=== PATIENT | female | born 1950 | race Two or more races ===

== ENCOUNTER 2022-05-05 09:05 | Outpatient (CLI) | payer OTHER | END 2022-05-05 09:13 | disposition home or self-care (01) | LOC: SONOGRAMA 09:05 | PROVIDERS: ATTEND Internal Medicine | DX: E04.2 Nontoxic multinodular goiter (principal); R22.1 Localized swelling, mass and lump, neck ==

== ENCOUNTER 2022-06-09 07:29 | Outpatient (CLI) | payer OTHER | END 2022-06-09 07:36 | disposition home or self-care (01) | LOC: TOM 07:29 | PROVIDERS: ATTEND Otolaryngology Otology & Neurotology | DX: D37.030 Neoplasm of uncertain behavior of the parotid salivary glands (principal) | CPT/HCPCS: 70491; Q9965 ==

== ENCOUNTER 2022-07-08 08:09 | Outpatient (CLI) | payer OTHER | END 2022-07-08 08:11 | disposition home or self-care (01) | LOC: SONOGRAMA 08:09 | PROVIDERS: ATTEND Pathology Anatomic Pathology & Clinical Pathology | DX: D37.030 Neoplasm of uncertain behavior of the parotid salivary glands (principal); D11.0 Benign neoplasm of parotid gland ==

== ENCOUNTER 2023-05-03 09:54 | Outpatient (CLI) | payer OTHER | END 2023-05-03 10:03 | disposition home or self-care (01) | LOC: TOM 09:54 | PROVIDERS: ATTEND Internal Medicine Pulmonary Disease | DX: G47.33 Obstructive sleep apnea (adult) (pediatric) (principal); Z87.891 Personal history of nicotine dependence; E66.01 Morbid (severe) obesity due to excess calories; R05.3 Chronic cough; D11.0 Benign neoplasm of parotid gland | CPT/HCPCS: 70491; 71250; Q9965 ==

== ENCOUNTER 2023-06-08 09:39 | Outpatient (CLI) | payer OTHER | END 2023-06-08 09:49 | disposition home or self-care (01) | LOC: MAMO-SONO 09:39 | PROVIDERS: ATTEND Surgery | DX: N60.11 Diffuse cystic mastopathy of right breast (principal); N60.12 Diffuse cystic mastopathy of left breast ==

== ENCOUNTER 2023-07-27 07:22 | Outpatient (CLI) | payer OTHER | END 2023-07-27 07:25 | disposition home or self-care (01) | LOC: NUCLEAR 07:22 | PROVIDERS: ATTEND Internal Medicine Pulmonary Disease | DX: G47.33 Obstructive sleep apnea (adult) (pediatric) (principal); R91.1 Solitary pulmonary nodule; Z87.891 Personal history of nicotine dependence; E66.01 Morbid (severe) obesity due to excess calories; R05.3 Chronic cough | CPT/HCPCS: 78816; A9552 ==

== ENCOUNTER 2023-08-01 07:40 | Day surgery (SDC) | payer OTHER ==
[2023-07-26 10:32] LABS: HEMATOCRIT 36.5 % (36.0-45.00); HEMOGLOBIN 12.3 g/dL (12.0-15.00); MEAN CELL VOLUME 79.5 fL (80.00-100.00); MEAN CORPUSCULAR HEMOGLOBIN 26.9 pg (27.00-32.0); MEAN CORPUSCULAR HGB CONC 33.8 g/dl (32.0-36.0); PLATELET COUNT 218 K/uL (150-450); RED BLOOD COUNT 4.59 M/uL (4.00-6.00); RED CELL DISTRIBUTION WIDTH 16.5 % (11.5-14.5)
[2023-07-26 10:33] LABS: PH,URINE 6.5 (5.0-8.0); URINE APPEARANCE Clear; URINE BILIRRUBIN Negative (NEGATIVE); URINE BLOOD Negative; URINE COLOR Yellow; URINE GLUCOSE Negative (NEGATIVE); URINE LEUKOCYTE Trace; URINE NITRATE Negative; URINE PROTEIN Negative (NEGATIVE); URINE UROBILINOGEN 0.2 E.U./dl
[2023-07-26 10:38] LABS: URINE BACTERIA 17.6 uL (0.0-1933); URINE EPITHELIAL CELLS 5.2 uL (0.0-38.8); URINE WBC 5.4 uL (0.0-23.2)
[2023-07-26 10:52] LABS: URINE RBC 1.8 uL (0.0-20.8)
[2023-07-26 11:03] LABS: INR 1.05; PARTIAL THROMBOPLASTIN TIME 23.4 SECONDS (22.0-34.0)
[2023-07-26 11:10] LABS: BILIRUBIN TOTAL 0.67 mg/dL (0.3-1.2); CALCIUM 9.4 mg/dL (8.5-10.1); CREATININE SERUM 0.95 mg/dL (0.55-1.02); GFR 57.99; GLOBULINA 3.8 G/DL (2.4-3.5); POTASSIUM 3.92 mEq/L (3.5-5.1); TOTAL PROTEIN 7.8 gm/dL (6.4-8.2)
[2023-08-01] MEDS ORDERED: METFORMIN HCL1000 M3 (14:53)
[2023-08-01] MEDS ORDERED: CANDESARTAN CIL16 MG (14:53)
[2023-08-01] MEDS ORDERED: PANTOPRAZOLE SO20 MG (14:53)
[2023-08-01] MEDS ORDERED: HYDROCHLOROTHIA25 MG (14:53)
[2023-08-01] MEDS ORDERED: AMLODIPINE BESYL5 MG (14:53)
[2023-08-01] MEDS ORDERED: ROSUVASTATIN CA20 MG (14:53)
[2023-08-01] MEDS ORDERED: GABAPENTIN300 M2 (14:53)
[2023-08-01] MEDS ORDERED: GLIMEPIRIDE2 M1 (14:53)
== END 2023-08-01 15:20 | disposition home or self-care (01) ==
LOC: SURH 07:40 → O/R 07:40 → CIR.AMB 07:40 → SURH 08:15 → EDSTATUS 08:15 → CIR.AMB 08:15 → SURH 11:00 → CIR.AMB 15:20 → O/R 15:20
PROVIDERS: ATTEND Otolaryngology
DX: D11.0 Benign neoplasm of parotid gland (principal); Z20.822 Contact with and (suspected) exposure to COVID-19; Z88.0 Allergy status to penicillin; Z91.013 Allergy to seafood; I10 Essential (primary) hypertension

== ENCOUNTER → 2024-02-27 10:36 | Outpatient (CLI) | payer OTHER ==
[~2024-02-27 10:36] MED LIST: AMLODIPINE BESYL5 MG; CANDESARTAN CIL16 MG; GABAPENTIN300 M2; GLIMEPIRIDE2 M1; HYDROCHLOROTHIA25 MG; METFORMIN HCL1000 M3; PANTOPRAZOLE SO20 MG; ROSUVASTATIN CA20 MG
[2024-02-27 11:50] LABS: CREATININE SERUM 0.97 mg/dL (0.55-1.02); GFR 56.45
== END | disposition home or self-care (01) ==
LOC: LAB 10:36
PROVIDERS: ATTEND Radiology Diagnostic Radiology
DX: R10.30 Lower abdominal pain, unspecified (principal)

== ENCOUNTER 2024-02-29 07:04 | Outpatient (CLI) | payer OTHER | END 2024-02-29 07:16 | disposition home or self-care (01) | LOC: TOM 07:04 | PROVIDERS: ATTEND Thoracic Surgery (Cardiothoracic Vascular Surgery) | DX: R91.1 Solitary pulmonary nodule (principal) | CPT/HCPCS: 71260; Q9965 ==

== ENCOUNTER 2024-06-04 07:59 | Outpatient (CLI) | payer OTHER | END 2024-06-04 08:02 | disposition home or self-care (01) | LOC: SONOGRAMA 07:59 | PROVIDERS: ATTEND Pathology Anatomic Pathology & Clinical Pathology | DX: D11.0 Benign neoplasm of parotid gland (principal) ==

== ENCOUNTER 2024-06-12 08:33 | Outpatient (CLI) | payer OTHER | END 2024-06-12 08:37 | disposition home or self-care (01) | LOC: MAMO-SONO 08:33 | PROVIDERS: ATTEND Surgery | DX: N60.11 Diffuse cystic mastopathy of right breast (principal); N60.12 Diffuse cystic mastopathy of left breast; Z12.31 Encounter for screening mammogram for malignant neoplasm of breast ==

== ENCOUNTER 2024-10-16 07:08 | Outpatient (CLI) | payer OTHER | END 2024-10-16 07:10 | disposition home or self-care (01) | LOC: TOM 07:08 | PROVIDERS: ATTEND Thoracic Surgery (Cardiothoracic Vascular Surgery) | DX: R91.8 Other nonspecific abnormal finding of lung field (principal) ==

== ENCOUNTER 2024-10-16 07:46 | Outpatient (CLI) | payer OTHER | END 2024-10-16 07:49 | disposition home or self-care (01) | LOC: NUCLEAR 07:46 | PROVIDERS: ATTEND Family Medicine | DX: M85.80 Other specified disorders of bone density and structure, unspecified site (principal); M81.0 Age-related osteoporosis without current pathological fracture ==

== ENCOUNTER 2025-03-12 09:45 | Outpatient (CLI) | payer OTHER | END 2025-03-12 10:02 | disposition home or self-care (01) | LOC: SONOGRAMA 09:45 | PROVIDERS: ATTEND Otolaryngology | DX: R22.1 Localized swelling, mass and lump, neck (principal) ==

== ENCOUNTER 2025-04-10 08:39 | Outpatient (CLI) | payer OTHER | END 2025-04-10 08:40 | disposition home or self-care (01) | LOC: TOM 08:39 | PROVIDERS: ATTEND Thoracic Surgery (Cardiothoracic Vascular Surgery) | DX: C34.32 Malignant neoplasm of lower lobe, left bronchus or lung (principal) ==